=== PATIENT | female | born 1965 | race Hispanic/Latino ===

== ENCOUNTER → 2017-07-12 | Outpatient (CLI) | payer OTHER ==
[2017-07-12 08:25] LABS: BASOPHILS % (AUTO) 0.6 % (0.0-5.0); EOSINOPHILS % (AUTO) 2.6 % (0.0-8.0); LYMPHOCYTES % (AUTO) 32.2 % (21.0-51.0); MEAN CORPUSCULAR HEMOGLOBIN 31.8 pg (27.0-33.0); MEAN CORPUSCULAR HGB CONC 35.3 g/dL (32.0-36.0); MONOCYTES % (AUTO) 6.6 % (3.0-13.0); PLATELET COUNT (AUTO) 167 K/uL (130-400); RED BLOOD CELL COUNT(AUTO) 4.22 MIL/uL (4.00-5.50); RED CELL DISTRIBUTION WIDTH 12.4 % (11.0-15.5); WHITE BLOOD COUNT (AUTO) 3.8 K/uL (4.8-10.8)
[2017-07-12 08:36] LABS: ALBUMIN 3.8 g/dL (3.5-5.0); BILIRUBIN,TOTAL 0.3 mg/dL (0.2-1.0); CREATININE 0.6 mg/dL (0.5-1.5); POTASSIUM 4.3 mmol/L (3.5-5.1); TOTAL PROTEIN, SERUM 7.4 g/dL (6.0-8.3)
== END | disposition home or self-care (01) ==
LOC: LAB 07:34
PROVIDERS: ATTEND Internal Medicine
DX: I10 Essential (primary) hypertension (principal); J45.909 Unspecified asthma, uncomplicated; E78.2 Mixed hyperlipidemia
CPT/HCPCS: 36415; 80053; 80061; 85025

== ENCOUNTER → 2017-07-15 | Outpatient (CLI) | payer OTHER | END | disposition home or self-care (01) | LOC: LAB 12:23 | PROVIDERS: ATTEND Internal Medicine | DX: Z01.419 Encounter for gynecological examination (general) (routine) without abnormal findings (principal); Z12.4 Encounter for screening for malignant neoplasm of cervix; Z12.11 Encounter for screening for malignant neoplasm of colon; I10 Essential (primary) hypertension | CPT/HCPCS: 36415; 82043; 88175 ==

== ENCOUNTER → 2018-01-14 | Outpatient (CLI) | payer OTHER ==
[2018-01-14 08:35] LABS: BILIRUBIN,TOTAL 0.2 mg/dL (0.2-1.0); CREATININE 0.7 mg/dL (0.5-1.5); POTASSIUM 4.8 mmol/L (3.5-5.1); TOTAL PROTEIN, SERUM 7.8 g/dL (6.0-8.3)
== END | disposition home or self-care (01) ==
LOC: LAB 07:29
PROVIDERS: ATTEND Internal Medicine
DX: E78.2 Mixed hyperlipidemia (principal); H81.10 Benign paroxysmal vertigo, unspecified ear; M25.50 Pain in unspecified joint
CPT/HCPCS: 36415; 80053; 80061

== ENCOUNTER → 2018-07-18 | Outpatient (CLI) | payer OTHER ==
[2018-07-18 08:19] LABS: BASOPHILS % (AUTO) 1.8 % (0.0-5.0); EOSINOPHILS % (AUTO) 2.9 % (0.0-8.0); HEMATOCRIT 39.6 % (36-48); LYMPHOCYTES % (AUTO) 34.3 % (21.0-51.0); MEAN CORPUSCULAR HEMOGLOBIN 31.3 pg (27.0-33.0); MEAN CORPUSCULAR HGB CONC 34.2 g/dL (32.0-36.0); MEAN CORPUSCULAR VOLUME 91.4 fL (79-99); MONOCYTES % (AUTO) 8.6 % (3.0-13.0); NEUTROPHILS % (AUTO) 52.4 % (40.0-77.0); NUCLEATED RED BLOOD CELLS 0.1 % (0.0-0.19); PLATELET COUNT (AUTO) 192 K/uL (130-400); RED BLOOD CELL COUNT(AUTO) 4.33 MIL/uL (4.00-5.50); WHITE BLOOD COUNT (AUTO) 3.3 K/uL (4.8-10.8)
[2018-07-18 08:34] LABS: ALBUMIN 3.9 g/dL (3.5-5.0); BILIRUBIN,TOTAL 0.3 mg/dL (0.2-1.0); CREATININE 0.6 mg/dL (0.5-1.5); POTASSIUM 3.9 mmol/L (3.5-5.1); TOTAL PROTEIN, SERUM 7.6 g/dL (6.0-8.3)
[2018-07-18 08:41] LABS: HEMOGLOBIN A1C 5.5 % (4.0-6.0)
== END | disposition home or self-care (01) ==
LOC: LAB 07:45
PROVIDERS: ATTEND Internal Medicine
DX: E78.2 Mixed hyperlipidemia (principal); I10 Essential (primary) hypertension; R73.09 Other abnormal glucose
CPT/HCPCS: 36415; 80053; 80061; 83036; 85025

== ENCOUNTER → 2018-12-15 | Outpatient (CLI) | payer OTHER | END | disposition home or self-care (01) | LOC: RAH 13:06 | PROVIDERS: ATTEND Internal Medicine | DX: J45.909 Unspecified asthma, uncomplicated (principal); M47.814 Spondylosis without myelopathy or radiculopathy, thoracic region; M41.84 Other forms of scoliosis, thoracic region | CPT/HCPCS: 71046 ==

== ENCOUNTER → 2024-05-03 | Outpatient (CLI) | payer BC ==
[~2024-05-03] MED LIST: ALBU18HF7 IH; ALBU2.5V2 IH; ALEN70TA80 PO; AZEL137S11 NS; ESOM40CA66 PO; FLUT1BLS3 IH; HYDR12.54 PO; LORA10TA7 PO; LOSA25TA41 PO; MONT-39 PO
--- NOTE | 2024-05-03 15:44 | HMCSR ---
APPROVED REPORT EXAM: Two-dimensional and M-mode echocardiogram with Doppler and color Doppler. INDICATION ICD: R06.02 Shortness of breath 2D Dimensions RVDd5.5 cmLVEF(%)39.9 (>50%) IVSd0.6 (0.7-1.1cm)FS(%)19 % LVDd3.5 (3.8-5.6cm)LVOT diam1.6 (1.8-2.4cm) PWd0.8 (0.7-1.1cm) IVSs0.6 cm LVDs2.8 (2.5-4.0cm) PWs1.0 cm M-Mode Dimensions LA (MM)3.3 (1.6-4.0cm) Ao Root(MM)2.1 (2.0-3.7cm) Aortic Valve AoV Vmax1.1 m/Randall Peak GR4.5 mmHgLVOT Vmax0.7 m/s AoV VTI0.1 mAo Mean GR2.2 mmHgLVOT VTI0.09 m MAGGY (VMAX)1.3 cm2AVA (VTI) 1.3 cm2 Mitral Valve MV Peak GR23 mmHg MV Mean GR11 mmHg MR [id number] cm2 TDI Medial E' Peak V7.00 cm/sLateral E' Peak V7.00 cm/s Pulmonary Valve PV Vmax0.6 m/s Tricuspid Valve TR Vmax4.3 m/sRAP (EST) 8 [id number] mmHg TR Peak GR77.5 mmHg Left Ventricle Left ventricular cavity size is normal. There is normal LV segmental wall motion. There is normal lef t ventricular wall thickness. The Ejection Fraction is 60-65%. Indeterminate diastolic dysfunction. Right Ventricle The right ventricle is mildly dilated. Right ventricular systolic function is normal. Atria The left atrium size is normal. 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 The right atrium size is norm al. Aortic Valve The aortic valve is normal in structure and function. No aortic regurgitation is present. There is no aortic valvular stenosis. Mitral Valve The mitral valve is normal in structure and function. Mitral regurgitation is trace. There is no mitr al valve stenosis. Tricuspid Valve The tricuspid valve is normal in structure and function. Pulmonic Valve Pulmonic valve is not well visualized. Great Vessels Aortic root is within normal limits. Pericardium No pericardial effusion. Other Information Quality : Adequate Conclusion The Ejection Fraction is 60-65%. The left atrium size is normal. 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
--- NOTE | 2024-05-03 15:47 | NUR ---
Reported Echocardiogram abnormal finding on 05/03/24 @0722 to Laya Veronica NP. Advised to take pt to Emergency Room. Pt aware and wheeled to Emergency area.
== END | disposition home or self-care (01) ==
LOC: RAH 14:38
PROVIDERS: ATTEND Internal Medicine
DX: I08.8 Other rheumatic multiple valve diseases (principal); R06.02 Shortness of breath
CPT/HCPCS: 93306